=== PATIENT | male | born 1980 | race Caucasian/White ===

== ENCOUNTER 2016-07-02 13:03 | Emergency (ER) | payer BC ==
[2016-07-02 13:18] VITALS: TEMP 97.4
[2016-07-02 13:19] LABS: BASOPHILS % (AUTO) 1 % (0-3); EOSINOPHILS % (AUTO) 0 % (0-9); HEMATOCRIT 43 % (39-53); MEAN CORPUSCULAR HGB CONC 35.6 gm/dl (32.0-36.0); MONOCYTES % (AUTO) 4.9 % (0-12); NEUTROPHILS % (AUTO) 77.9 % (37-80)
[2016-07-02 13:32] LABS: POTASSIUM 3.9 mMol/L (3.5-5.1); SODIUM 140 mMol/L (136-145)
[2016-07-02 14:28] LABS: CALCIUM 9.2 mg/dl (8.5-10.1); GLOM FILT RATE 111 mL/min (>60)
[2016-07-02 15:11] VITALS: BP 122/66; PULSE 64; RESP 19; O2SAT 98
== END 2016-07-02 15:04 | disposition home or self-care (01) ==
LOC: ED 13:03
DX: R07.89 Other chest pain (principal)
CPT/HCPCS: 71020; 80048; 84484; 85025; 93005; 99284; 99285

== ENCOUNTER 2016-07-03 17:48 | Emergency (ER) | payer BC ==
[2016-07-03 17:55] VITALS: TEMP 98.7
[2016-07-03 18:26] LABS: BASOPHILS % (AUTO) 1 % (0-3); EOSINOPHILS % (AUTO) 1 % (0-9); HEMATOCRIT 41 % (39-53); MEAN CORPUSCULAR HGB CONC 34.7 gm/dl (32.0-36.0); MONOCYTES % (AUTO) 6.3 % (0-12); NEUTROPHILS % (AUTO) 71.3 % (37-80)
[2016-07-03 18:33] LABS: APPEARANCE,URINE Clear; BILIRUBIN,URINE NEGATIVE (NEGATIVE); COLOR,URINE Yellow; GLUCOSE, URINE (UA) NEGATIVE (NEGATIVE); KETONES,URINE TRACE (NEGATIVE); LEUKOCYTE ESTERASE ,URINE NEGATIVE (NEGATIVE); NITRATE,URINE NEGATIVE (NEGATIVE); OCCULT BLOOD,URINE TRACE LYSED (NEG-TRACE); UROBILINOGEN,URINE 0.2 (0.2-1.0 EU)
[2016-07-03 18:45] LABS: AMPHETAMINES NEGATIVE (NEGATIVE); METHADONE NEGATIVE (NEGATIVE); OPIATES(OP13) NEGATIVE (NEGATIVE); OXYCODONE(OXY) NEGATIVE (NEGATIVE); PROPOXYPHENE(PPX) NEGATIVE (NEGATIVE); RBC,URINE 0-1 (0-3AV/HPF); WBC,URINE NEG (0-5AV/HPF)
[2016-07-03 18:49] LABS: ALBUMIN 3.9 gm/dl (3.4-5.0); CALCIUM 8.6 mg/dl (8.5-10.1); MAGNESIUM 1.9 mg/dl (1.8-2.4); PHOSPHORUS 3.8 mg/dl (2.6-4.7); POTASSIUM 3.8 mMol/L (3.5-5.1); THYROID STIMULATING HORMONE 1.326 uU/ml (0.358-3.740)
[2016-07-03 19:22] VITALS: BP 134/68; PULSE 82; RESP 12; O2SAT 99
== END 2016-07-03 19:20 | disposition home or self-care (01) ==
LOC: ED 17:48
DX: R42 Dizziness and giddiness (principal)
CPT/HCPCS: 36415; 80053; 81001; 83735; 84100; 84443; 85025; 99282; 99283

== ENCOUNTER 2017-03-26 20:37 | Emergency (ER) | payer BC ==
[2017-03-26] MEDS ORDERED: NITROGLYCERIN 0.4 MG TAB SL PRN (20:47)
[2017-03-26] MEDS ORDERED: ASPIRIN 81 MG CHEWABLE CTB ONE (20:49)
[2017-03-26] MEDS ORDERED: NITROGLYCERIN 0.4 MG TAB SL ONE (20:49)
[2017-03-26] MEDS: ASPIRIN 81 MG CHEWABLE CTB PO STA (20:50)
[2017-03-26 20:53] LABS: BASOPHILS % (AUTO) 1 % (0-3); EOSINOPHILS % (AUTO) 1 % (0-9); HEMATOCRIT 42 % (39-53); MEAN CORPUSCULAR HGB CONC 36.1 gm/dl (32.0-36.0); MEAN CORPUSCULAR VOLUME 85 fL (80-100); MONOCYTES % (AUTO) 7.7 % (0-12); NEUTROPHILS % (AUTO) 55.3 % (37-80)
[2017-03-26] MEDS: SODIUM CHLORIDE 0.9% FLUSH 10 ML SOL IV PRN (20:55)
[2017-03-26 21:03] VITALS: TEMP 97.6; O2SAT 97
[2017-03-26 21:09] LABS: CALCIUM 8.9 mg/dl (8.5-10.1); GLOM FILT RATE 99 mL/min (>60); POTASSIUM 3.5 mMol/L (3.5-5.1); SODIUM 141 mMol/L (136-145)
[2017-03-26 21:42] VITALS: BP 129/80; PULSE 65; RESP 14
== END 2017-03-26 21:32 | disposition home or self-care (01) ==
LOC: ED 20:37
DX: R07.89 Other chest pain (principal)
CPT/HCPCS: 36415; 71010; 80048; 82550; 84484; 85025; 85610; 85730; 93005; 99284

== ENCOUNTER 2018-01-17 15:46 | Emergency (ER) | payer BC ==
[2018-01-17 16:02] VITALS: TEMP 97
[2018-01-17] MEDS ORDERED: LIDOCAINE 1% W/EPI MPF 30 ML SOL SC ONE (16:11)
[2018-01-17] MEDS ORDERED: LIDOCAINE 1% W/EPI MPF 30 ML SOL INFIL ONE (16:11)
[2018-01-17] MEDS ORDERED: LIDOCAINE 1% W/EPI MPF 30 ML SOL ONE (16:12)
[2018-01-17 17:13] VITALS: BP 118/73; PULSE 75; RESP 17; O2SAT 97
== END 2018-01-17 16:57 | disposition home or self-care (01) ==
LOC: ED 15:46
DX: S61.012A Laceration without foreign body of left thumb without damage to nail, initial encounter (principal)
CPT/HCPCS: 12001; 99283; G0168